=== PATIENT | male | born 1995 ===

== ENCOUNTER 2021-11-17 14:17 | Emergency (ER) | payer SELFPAY ==
--- NOTE | 2021-11-20 08:32 | Electrocardiograph Report ---
[facility] Test Date: 2021-11-17 Test Time: 14:29:11 Pat Name: DUNIA ELIZALDE Department: Room: Gender: M [employer] Operator: BRADLY : 1995 Requested By: JACE BISHOP Order Number: [id number] Reading MD: Dee Dee Engel Measurements Intervals [place] Rate: 62 P: 23 IN: 142 QRS: 26 QRSD: 88 T: 21 QT: 409 QTc: 416 Interpretive Statements Sinus rhythm Low voltage, precordial leads Consider anteroseptal infarct No previous ECG available for comparison Electronically Signed On 11-20-2021 8:32:27 EDT by Dee Dee Engel
== END 2021-11-17 16:50 | disposition home or self-care (01) ==
LOC: ED 14:17
DX: R51.9 Headache, unspecified (principal); Z53.21 Procedure and treatment not carried out due to patient leaving prior to being seen by health care provider
CPT/HCPCS: 93005